=== PATIENT | female | born 1965 | race Caucasian/White ===

== ENCOUNTER 2016-03-07 09:41 | Emergency (ER) | payer BC ==
[~2016-03-07] VITALS: Ht 177.8 cm; Wt 99.8 kg
--- OUTSIDE RECORDS SUMMARY | 2016-03-07 09:46 | XMS REPORT | Continuity of Care Document ---
Author Author [facility] Organization [facility] Address Unknown Phone Unavailable Care Team Providers Care Park Guard Name Role Phone Yessenia Torres PCP [phone] Source Comments Some departments are not documenting in the electronic medical record. If you do not see the information that you expected, contact Release of Information in the Health Information Management department at [phone] for further assistance in locating additional records.[facility] Active Allergies and Adverse Reactions No Known Allergies Current Medications Prescription Sig. Disp. Refills Start End Date Status Date HYDROCHLOROTHIAZIDE PO Take by mouth. Active AMLODIPINE BESYLATE Take by mouth. Active (NORVASC PO) FEXOFENADINE HCL (NIESHA Take by mouth. Active PO) PAROXETINE HCL (PAXIL PO) Take by mouth. Active ERGOCALCIFEROL (VITAMIN Take by mouth. Active D2) (VITAMIN D PO) acetaZOLAMIDE (DIAMOX) Take 1 Tab by mouth twice 60 Tab 1 04/13/19 Active 250 mg tablet daily. 1 po x 14 days 14 BID, 1/2 po QAM x 14 days, then 1/2 po QOD x 14 days then stop. Active Problems Problem Noted Date Intracranial hypertension 02/15/2013 Overview: Originally diagnosed in 1995 and treated with bilateral optic nerve sheath decompression Social History Tobacco Use Types Packs/Day Years Used Date Never Smoker Alcohol Use Drinks/Week oz/Week Comments Yes ~1x/year Last Filed Vital Signs Vital Sign Reading Time Taken Blood Pressure 127/65 03/23/2013 6:00 PM HEALTH INFORMATION ASSISTANT Pulse 67 03/23/2013 6:00 PM HEALTH INFORMATION ASSISTANT Temperature 36.6 C (97.9 F) 03/23/2013 3:00 PM HEALTH INFORMATION ASSISTANT Respiratory Rate - - Height 1.778 m (5' 10") 03/23/2013 3:00 PM HEALTH INFORMATION ASSISTANT Weight 95.255 kg (210 lb) 03/23/2013 3:00 PM HEALTH INFORMATION ASSISTANT Body Mass Index 30.13 03/23/2013 3:00 PM HEALTH INFORMATION ASSISTANT Oxygen Saturation 99% 03/23/2013 6:00 PM HEALTH INFORMATION ASSISTANT Plan of Care Health Maintenance Due Date Last Done Comments Physical (Comprehensive) 1972 Exam Pertussis Vaccine 1976 Tetanus Vaccine 1982 Cervical Cancer Screening 1986 Breast Cancer Screening 2005 Influenza Vaccine 11/06/2015 Results from Last 3 Months Not on file
[2016-03-07] MEDS ORDERED: LOZOL (10:16)
[2016-03-07] MEDS ORDERED: [UNRECOGNIZED DRUG - OTHER] (10:16)
[2016-03-07] MEDS ORDERED: AMLO5TAB2 PO (10:16)
[2016-03-07] MEDS ORDERED: MIRA25TA PO (10:16)
[2016-03-07] MEDS ORDERED: MONT10TA21 PO (10:16)
[2016-03-07] MEDS ORDERED: PARO25TA16 PO (10:16)
[2016-03-07 10:24] LABS: BILIRUBIN,URINE NEGATIVE (NEGATIVE); KETONES,URINE NEGATIVE (NEGATIVE); LEUKOCYTE ESTERASE ,URINE 3+ (NEGATIVE); NITRITE,URINE NEGATIVE (NEGATIVE); PH,URINE 7 (5-9); PROTEIN,URINE 1+ (NEGATIVE); UROBILINOGEN,URINE NORMAL (NORMAL)
--- NOTE | 2016-03-07 10:33 | ED GU-Female ---
General Chief Complaint: -Female Stated Complaint: UTI SYMPTOMS Nursing Triage Note: PT CO OF URINARY SX, PAIN BURNING HESTITANCY, POSS FEVER LAST PM Nursing Sepsis Screen: No Definite Risk Source: patient History of Present Illness Time seen by provider: 10:10 Initial Comments C/O BURNING ON URINATION SINCE YESTERDAY AM HAD SEVERE BLADDER SPASMS DURING THE NIGHT HAD SUBJECTIVE FEVER, SWEATS, CHILLS LAST PM NO BACK PAIN NO NAUSEA/VOMITING HAS HISTORY OF SIMILAR ONCE BEFORE 6 YEARS AGO PCP: DR. ROACH Allergies and Home Medications Allergies Coded Allergies: No Known Allergies (Verified Allergy, Unknown, 09/23/06) Home Medications 1.25 DAILY (Reported) Unknown Dose (Reported) Amlodipine Besylate 5 Mg Tablet 5 MG PO DAILY (Reported) Mirabegron 25 Mg Tab.er.24h 25 MG PO DAILY (Reported) Montelukast Sodium 10 Mg Tablet 10 MG PO DAILY (Reported) Paroxetine HCl 25 Mg Tab.er.24h 25 MG PO DAILY (Reported) Constitutional: see HPI chills diaphoresis fever Respiratory: no symptoms reported Cardiovascular: no symptoms reported Gastrointestinal: no symptoms reported Genitourinary: see HPI burning frequency pain urgency : No Musculoskeletal: no symptoms reported Skin: no symptoms reported Psychiatric/Neurological: No Symptoms Reported Endocrine: No Symptoms Reported Hematologic/Lymphatic: No Symptoms Reported Past Loohjgs-Qhecri-Rzowrm Hx Patient Social History Alcohol Use: Denies Use Recreational Drug Use: No Smoking Status: Never a Smoker Recent Foreign Travel: No Contact w/Someone Who Travel: No Recent Infectious Disease Expo: No Physical Abuse Screen: No Sexual Abuse: No Surgeries HX Surgeries: Yes (ENDOMETRIAL ABLATION) Respiratory Hx Respiratory Disorders: No Cardiovascular Hx Cardiac Disorders: Yes Cardiac Disorders: Hypertension Neurological Hx Neurological Disorders: No Reproductive System : Yes (UTERINE ABLATION) Female Reproductive Disorders: Menstrual Problems Genitourinary Hx Genitourinary Disorders: Yes Genitourinary Disorders: Bladder Infection Gastrointestinal Hx Gastrointestinal Disorders: No Musculoskeletal Hx Musculoskeletal Disorders: No Endocrine Hx Endocrine Disorders: No HEENT HX ENT Disorders: No Cancer Hx Cancer: No Psychosocial Hx Psychiatric Problems: No Integumentary HX Skin/Integumentary Disorder: No Blood Transfusions Hx Blood Disorders: No Physical Exam Vital Signs Vital Sign - Last 12Hours 03/07/16 10:00 Temp 98.4 Pulse 95 Resp 16 B/P 155/100 Pulse Ox 99 Capillary Refill : Less Than 3 Seconds General Appearance: WD/WN no apparent distress other (SMILING, READING A BOOK) Cardiovascular: regular rate, rhythm no murmur Respiratory: normal breath sounds no respiratory distress no accessory muscle use Gastrointestinal: normal bowel sounds non tender soft no organomegaly Back: normal inspection no CVA tenderness no vertebral tenderness Extremities: normal range of motion non-tender normal inspection no pedal edema no calf tenderness normal capillary refill Neurologic/Psychiatric: swatcher II-XII nml as tested no motor/sensory deficits alert normal mood/affect oriented x 3 Skin: normal color warm/dry Progress/Results/Core Measures Results/Orders Lab Results Laboratory Tests Test 03/07/16 10:10 Range/Units Urine Bacteria MODERATE H /HPF Urine Bilirubin NEGATIVE NEGATIVE Urine Casts NONE /LPF Urine Clarity SLIGHTLY CLOUDY Urine Color YELLOW Urine Crystals NONE /LPF Urine Culture Indicated YES Urine Glucose (UA) NEGATIVE NEGATIVE Urine Ketones NEGATIVE NEGATIVE Urine Leukocyte Esterase 3+ H NEGATIVE Urine Mucus NEGATIVE /LPF Urine Nitrite NEGATIVE NEGATIVE Urine Test NEGATIVE NEGATIVE Urine Protein 1+ H NEGATIVE Urine RBC 25-50 H /HPF Urine RBC (Auto) 2+ H NEGATIVE Urine Specific [place]oni 1.005 L 1.016-1.022 Urine Squamous Epithelial Cells 2-5 /HPF Urine Urobilinogen NORMAL NORMAL MG/DL Urine WBC >100 H /HPF Urine pH 7 5-9 My Orders Orders-INGRID SALTER DO Hcg,Qualitative Urine (03/07/16 10:13) Ua Culture If Indicated (03/07/16 10:13) Urine Culture (03/07/16 10:10) Vital Signs/I&O Vital Sign - Last 12Hours 03/07/16 10:00 Temp 98.4 Pulse 95 Resp 16 B/P 155/100 Pulse Ox 99 Blood Pressure Mean: 118 Point of Care Testing Urine -Bedside: Negative Departure Impression Impression: Primary Impression: Urinary tract infection Disposition: 01 HOME, SELF-CARE Condition: Stable Departure-Patient Inst. Referrals: YUSRA ROACH DO (PCP) Primary Care Physician DIVINE MORRIS DO (Family) Primary Care Physician Patient Instructions: Urinary Tract Infection, Adult (DC) Add. Discharge Instructions: LOTS OF CLEAR LIQUIDS TYLENOL AND MOTRIN NEEDED FOR PAIN FOLLOW UP WITH YOUR DR IN 2-3 DAYS IF NO BETTER All discharge instructions reviewed with patient and/or family. Voiced understanding. Scripts Phenazopyridine HCl (Pyridium)200 Mg Tablet1 Tab PO TID BLADDER DISCOMFORT #15 TAB Prov:INGRID SALTER DO 03/07/16 Nitrofurantoin Monohyd/M-Cryst (Macrobid 100 mg Capsule)100 Mg [id number] Mg PO BID #20 CAP Prov:INGRID SALTER DO 03/07/16 INGRID SALTER DO Mar 07, 2016 10:33
[2016-03-07 10:35] LABS: WBC,URINE >100 /HPF
[2016-03-07] MEDS ORDERED: PHEN-640 PO (10:49)
[2016-03-07] MEDS ORDERED: NITR-65 PO (10:49)
[2016-03-07 11:03] VITALS: BP 155/100
== END 2016-03-07 11:03 | disposition home or self-care (01) ==
LOC: EDUNIT# 09:41 → ER 09:42
DX: N39.0 Urinary tract infection, site not specified (principal)
CPT/HCPCS: 81000; 84703; 87077; 87088; 87186; 99283

== ENCOUNTER → 2016-03-09 | Outpatient (CLI) | payer BC ==
[~2016-03-09] MED LIST: AMLO5TAB2 PO; LOZOL; MIRA25TA PO; MONT10TA21 PO; NITR-65 PO; PARO25TA16 PO; PHEN-640 PO; [UNRECOGNIZED DRUG - OTHER]
--- OUTSIDE RECORDS SUMMARY | 2016-03-09 07:07 | XMS REPORT | Continuity of Care Document ---
Author Author [facility] Organization [facility] Address Unknown Phone Unavailable Care Team Providers Care Cord Tire Builder Name Role Phone Yessenia Torres PCP [phone] Source Comments Some departments are not documenting in the electronic medical record. If you do not see the information that you expected, contact Release of Information in the Health Information Management department at [phone] for further assistance in locating additional records.[facility] Active Allergies and Adverse Reactions No [...] Taken Blood Pressure 127/65 03/23/2013 6:00 PM YELLOW PAGES SPACE SALESPERSON Pulse 67 03/23/2013 6:00 PM YELLOW PAGES SPACE SALESPERSON Temperature 36.6 C (97.9 F) 03/23/2013 3:00 PM YELLOW PAGES SPACE SALESPERSON Respiratory Rate - - Height 1.778 m (5' 10") 03/23/2013 3:00 PM YELLOW PAGES SPACE SALESPERSON Weight 95.255 kg (210 lb) 03/23/2013 3:00 PM YELLOW PAGES SPACE SALESPERSON Body Mass Index 30.13 03/23/2013 3:00 PM YELLOW PAGES SPACE SALESPERSON Oxygen Saturation 99% 03/23/2013 6:00 PM YELLOW PAGES SPACE SALESPERSON Plan of Care Health Maintenance Due Date Last Done Comments Physical (Comprehensive) 1972 Exam Pertussis Vaccine 1976 Tetanus Vaccine 1982 Cervical Cancer Screening 1986 Breast Cancer Screening 2005 Influenza Vaccine 11/06/2015 Results from Last 3 Months Not on file
--- NOTE | 2016-03-09 17:14 | Diagnostic Imaging Report ---
Bilateral screening mammogram The current study was also evaluated with a Computer Aided Detection (CAD) system. INDICATION: Screening. No current complaints stated on the questionnaire. COMPARISON: 02/05/2015. FINDINGS: The breasts are composed of heterogeneously dense parenchyma, which may decrease mammographic sensitivity. There are scattered benign-appearing calcifications. Allowing for technique and positional differences, no suspicious change is seen. IMPRESSION: No significant change. ACR BI-RADS Category 2: Benign findings. Result letter will be mailed to the patient. Note: At least 10% of breast cancer is not imaged by mammography. Dictated by: Dictated on workstation # [id number]
== END ==
LOC: RAD 07:04
PROVIDERS: ATTEND Family Medicine
DX: Z12.31 Encounter for screening mammogram for malignant neoplasm of breast (principal)

== ENCOUNTER → 2017-05-02 | Outpatient (CLI) | payer BC ==
--- NOTE | 2017-05-02 11:16 | Diagnostic Imaging Report ---
INDICATION: Routine screening. COMPARISON: 03/09/2016 and 02/05/2015. TECHNIQUE: Screening digital mammography was performed bilaterally with a Computer Aided Detection (CAD) system. FINDINGS: Scattered fibroglandular densities are identified bilaterally. The parenchymal pattern is stable. No dominant mass or malignant appearing microcalcifications are seen. There are benign calcifications. The axillae are unremarkable. IMPRESSION: No mammographic features suspicious for malignancy are identified. ACR BI-RADS Category 2: Benign findings. Result letter will be mailed to the patient. Note: At least 10% of breast cancer is not imaged by mammography. Dictated by: Dictated on workstation # [id number]
== END ==
LOC: RAD 07:06
PROVIDERS: ATTEND Family Medicine
DX: Z12.31 Encounter for screening mammogram for malignant neoplasm of breast (principal)
CPT/HCPCS: 77067

== ENCOUNTER → 2018-06-12 | Outpatient (CLI) | payer BC ==
[~2018-06-12] MED LIST changes: -AMLO5TAB2 PO; +AMLO5TAB9 PO
--- NOTE | 2018-06-14 11:08 | Diagnostic Imaging Report ---
EXAMINATION: Digital mammogram bilateral screening with 3D tomosynthesis. INDICATION: Screening. This study was compared to the prior exams of 05/02/2017, 03/09/2016 and 02/05/2015. At this time there are no current complaints. The current study was also evaluated with a Computer Aided Detection (CAD) system. FINDINGS: The fibroglandular tissue in both breasts is heterogeneously dense. This does limit the sensitivity of this exam. Overall, there does not appear to have been any significant change when compared to the prior study. No primary or secondary sign of malignancy is noted. IMPRESSION: There is no radiographic evidence for malignancy. ACR BI-RADS Category 1: Negative. Result letter will be mailed to the patient. Note: At least 10% of breast cancer is not imaged by mammography. Dictated by: Dictated on workstation # [id number]
== END ==
LOC: RAD 15:01
PROVIDERS: ATTEND Family Medicine
DX: Z12.31 Encounter for screening mammogram for malignant neoplasm of breast (principal)
CPT/HCPCS: 77067

== ENCOUNTER → 2019-08-06 | Outpatient (CLI) | payer BC ==
--- NOTE | 2019-08-06 13:27 | Diagnostic Imaging Report ---
EXAMINATION: Digital mammogram bilateral screening with CAD. INDICATION: Screening. COMPARISON: This study is compared to the prior exams of 06/12/2018, 05/02/2017, and 03/09/2016. PERSONAL HISTORY: At this time, there are no current complaints. TECHNIQUE: The current study was also evaluated with a Computer Aided Detection (CAD) system. FINDINGS: The fibroglandular tissue in both breasts is heterogeneously dense. This does limit the sensitivity of this exam. Overall, there does not appear to have been any significant change when compared to the prior study. No primary or secondary sign of malignancy is noted. IMPRESSION: There is no radiographic evidence for malignancy. ACR BI-RADS Category 1: Negative. Result letter will be mailed to the patient. Note: At least 10% of breast cancer is not imaged by mammography. Dictated by: Dictated on workstation # [id number]
== END ==
LOC: RAD 07:26
PROVIDERS: ATTEND Family Medicine
DX: Z12.31 Encounter for screening mammogram for malignant neoplasm of breast (principal)
CPT/HCPCS: 77063; 77067

== ENCOUNTER → 2020-08-21 | Outpatient (CLI) | payer BC ==
[~2020-08-21] MED LIST changes: +AMLO-250 PO; -AMLO5TAB9 PO
--- NOTE | 2020-08-21 10:24 | Diagnostic Imaging Report ---
INDICATION: Routine screening. COMPARISON is made with prior mammogram from 08/06/2019. 2-D and 3-D bilateral screening mammography was performed with CAD. Both breasts are heterogeneously dense, limiting the sensitivity of mammography. The parenchymal pattern appears to be stable. No dominant mass or malignant appearing microcalcifications are seen. Axillae are unremarkable. There are benign calcifications noted. IMPRESSION: BI-RADS Category 2 No mammographic features suspicious for malignancy are identified. ACR BI-RADS Category 2: Benign findings. Result letter will be mailed to the patient. Note: At least 10% of breast cancer is not imaged by mammography. Dictated by: Dictated on workstation # [id number]
== END ==
LOC: RAD 07:17
PROVIDERS: ATTEND Family Medicine
DX: Z12.31 Encounter for screening mammogram for malignant neoplasm of breast (principal)
CPT/HCPCS: 77063; 77067